=== PATIENT | female | born 1975 | race American Indian/Alaskan Native ===

== ENCOUNTER 2019-04-27 03:02 | Observation (INO) | payer BC ==
[2019-04-27] MEDS ORDERED: IPRATROPIUM/ALBUTEROL SULFATE 3 ML AMPUL.NEB IH ONE (03:31)
--- NOTE | 2019-04-27 04:12 | XRay Report ---
CHEST PA AND LATERAL VIEWS INDICATION: cough. COMPARISON: 07/11/2018 FINDINGS: Support devices: None. Heart: Stable. Lungs/Pleura: No acute pulmonary or pleural findings. IMPRESSION: 1. No acute findings. Signer Name: Jaswinder Beard MD Signed: 04/27/2019 4:08 AM Workstation Name: [id number]
[2019-04-27] MEDS ORDERED: predniSONE 20 MG TAB PO ONE (04:43)
[2019-04-27] MEDS ORDERED: amLODIPine 5 MG TAB PO ONE (04:57)
[2019-04-27 05:23] LABS: Basophils % (Auto) 0.4 % (0.0-1.8); Eosinophils # (Auto) 0.1 K/mm3 (0.0-0.4); Eosinophils % (Auto) 0.6 % (0.0-4.3); Hematocrit 31.3 % (30.3-42.9); Hemoglobin 9.8 gm/dl (10.1-14.3); Lymphocytes # (Auto) 3.4 K/mm3 (1.2-5.4); Lymphocytes % (Auto) 39.7 % (13.4-35.0); Mean Corpuscular HGB Conc 32 % (30-34); Mean Corpuscular Volume 72 fl (79-97); Monocytes # (Auto) 0.7 K/mm3 (0.0-0.8); Monocytes % (Auto) 8.5 % (0.0-7.3); Platelet Count 263 K/mm3 (140-440); Red Blood Count 4.32 M/mm3 (3.65-5.03); Red Cell Distribution Width 19.1 % (13.2-15.2)
[2019-04-27 05:38] LABS: Alanine Aminotransferase 18 units/L (7-56); Albumin 4.4 g/dL (3.9-5); BUN/Creatinine Ratio 15; Blood Urea Nitrogen 9 mg/dL (7-17); Calcium 9.8 mg/dL (8.4-10.2); Hemolysis Index 3
[2019-04-27] MEDS ORDERED: SODIUM CHLORIDE 0.9% 1000 ML 1,000 ML IV ONE ×2 (06:18→10:06)
--- NOTE | 2019-04-27 06:26 | Emergency Department Report ---
HPI - General Chief Complaint: Dyspnea/Respdistress Time Seen by Provider: 04/27/19 05:58 - HPI HPI: 44-year-old -[place] female presents to the emergency department with the complaint of a 4 to 5-day history of some shortness of breath, wheezing, mixed dry and productive cough. For the first 2 days the patient had a subjective fever. She was taking some TheraFlu without any relief. Her symptoms are also associated with some body aches. She denies any chest pain, lower extremity swelling, vomiting. The patient is a tobacco smoker but says she is actively trying to quit. She has a past medical history of hypertension. She does not have a primary care physician. She denies any recent travel or sick contacts at home. ED Past Medical Hx - Past Medical History Previous Medical History?: Yes Hx Psychiatric Treatment: Yes (bipolar) Additional medical history: brochitis - Surgical History Past Surgical History?: Yes Additional Surgical History: tubal repair - Social History Smoking Status: Current Some Day Smoker Substance Use Type: None - Medications Home Medications: Home Medications Medication Instructions Recorded Confirmed Last Taken Type Albuterol INH(or & Nicu Only) 2 puff IH QID PRN #8.5 gram 04/27/19 Unknown Rx [ProAir HFA Inhaler] Nicotine [Habitrol] 21 mg TD DAILY 04/27/19 04/27/19 04/26/19 History amLODIPine [Norvasc] 10 mg PO DAILY 04/27/19 04/27/19 04/27/19 History predniSONE [Deltasone] 20 mg PO QDAY #5 tab 04/27/19 Unknown Rx ED Review of Systems ROS: Stated complaint: COUGH,DIFF BREATHING Other details as noted in HPI Comment: All other systems reviewed and negative Constitutional: fever (Subjective). denies: diaphoresis Eyes: denies: eye pain, vision change ENT: denies: ear pain, throat pain Respiratory: cough, shortness of breath, wheezing Cardiovascular: denies: chest pain, edema Gastrointestinal: denies: abdominal pain, vomiting Genitourinary: denies: dysuria, discharge Musculoskeletal: myalgia. denies: joint swelling Skin: denies: rash, lesions Neurological: denies: headache, weakness Physical Exam - Physical Exam Vital Signs: Vital Signs 04/27/19 04/27/19 04/27/19 03:06 04:01 04:46 Temperature 98.6 F Pulse Rate 120 H 114 H Pulse Rate [ 101 H Anterior Bilateral Throughout] Respiratory 18 30 H Rate Respiratory 20 Rate [Anterior Bilateral Throughout] Blood Pressure 194/105 181/105 O2 Sat by Pulse 100 98 Oximetry Physical Exam: GENERAL: The patient is well-developed well-nourished. HENT: Normocephalic. Atraumatic. Patient has moist mucous membranes. EYES: Extraocular motions are intact. NECK: Supple. Trachea is midline. CHEST/LUNGS: Mild wheezing throughout the chest. Moderate tachypnea but no accessory muscle use. A dry cough heard during examination. HEART/CARDIOVASCULAR: Regular. There is mild to moderate tachycardia. ABDOMEN: Abdomen is soft, nontender. Patient has normal bowel sounds. There is no abdominal distention. SKIN: Skin is warm and dry. NEURO: The patient is awake, alert, and oriented. The patient is cooperative. The patient has no focal neurologic deficits. Normal speech. MUSCULOSKELETAL: There is no tenderness or deformity. There is no evidence of acute injury. ED Course Vital Signs 04/27/19 04/27/19 04/27/19 03:06 04:01 04:46 Temperature 98.6 F Pulse Rate 120 H 114 H Pulse Rate [ 101 H Anterior Bilateral Throughout] Respiratory 18 30 H Rate Respiratory 20 Rate [Anterior Bilateral Throughout] Blood Pressure 194/105 181/105 O2 Sat by Pulse 100 98 Oximetry ED Medical Decision Making - Lab Data Result diagrams: 04/27/19 04:53 04/27/19 04:53 - EKG Data -: EKG Interpreted by Ri EKG shows normal: sinus rhythm, axis, intervals, QRS complexes, ST-T waves Rate: normal - EKG Data When compared to previous EKG there are: previous EKG unavailable Interpretation: normal EKG - Radiology Data Radiology results: image reviewed interpreted by me: Chest x-ray does not show any acute process. There are no pleural effusions, obvious pneumonia and there is no pneumothorax. - Medical Decision Making This patient presents with a 4 to 5-day history of shortness of breath, wheezing, coughing. EKG did not show any signs of ST elevation [place]. Chest x-ray did not show any pneumonia, pleural effusions, or any other acute process. Labs have been mostly unremarkable including CBC, metabolic panel, negative troponin and a negative d-dimer. The patient received some steroids and breathing treatment prior to my shift starting. I gave the patient some magnesium, hydralazine, and another breathing treatment. The patient says that she did not feel much improvement. She continued to have some tachypnea and tachycardia. For this reason the patient will be admitted to the hospital for further evaluation and treatment and was accepted for admission by the hospitalist, Dr. Mejias. - Differential Diagnosis Pneumonia, asthma, bronchitis, PE, CHF Critical Care Time: No Critical care attestation.: If time is entered above; I have spent that time in minutes in the direct care of this critically ill patient, excluding procedure time. ED Disposition Clinical Impression: Bronchitis, acute, with bronchospasm Hypertension Qualifiers: Hypertension type: essential hypertension Qualified Code(s): I10 - Essential (primary) hypertension Dyspnea Qualifiers: Dyspnea type: shortness of breath Qualified Code(s): R06.02 - Shortness of breath; R06.00 - Dyspnea, unspecified; R06.01 - Orthopnea Disposition: 09 OP ADMIT IP TO THIS HOSP Is pt being admited?: Yes Condition: Fair Time of Disposition: 09:07
[2019-04-27] MEDS ORDERED: MAGNESIUM SULFATE 1 GM in SODIUM CHLORIDE 0.9% 50 ML IV ONE (07:00)
[2019-04-27] MEDS ORDERED: ALBUTEROL 2.5 MG/3 ML NEBU IH ONE (07:44)
[2019-04-27] MEDS ORDERED: hydrALAZINE 20 MG/1 ML INJ IV ONE (08:42)
[2019-04-27] MEDS ORDERED: SODIUM CHLORIDE 0.9% 1000 ML 1,000 ML ONE (10:40)
--- NOTE | 2019-04-27 12:35 | History and Physical Report ---
History of Present Illness Date of examination: 04/27/19 Date of admission: 04/27/19 10:05 Chief complaint: sob, cough History of present illness: 44-year-old -[place] female with past medical history of hypertension presents to the emergency department with the complaint of a 4 to 5-day history of some shortness of breath, wheezing, mixed dry and productive cough. The patient reported subjective fever approximately 2 days ago. She also reports that her symptoms are also associated with some body aches. She denies any chest pain, lower extremity swelling, vomiting. The patient is a tobacco smoker. Patient denies any nausea or vomiting. No headache or visual disturbances. Past History Past Medical History: other (Bronchitis, bipolar disorder) Past Surgical History: Other (Tubal repair) Social history: smoking Family history: no significant family history Medications and Allergies Allergies Allergy/AdvReac Type Severity Reaction Status Date / Time acetaminophen [From Midrin] AdvReac Itching Verified 04/27/19 03:10 dichloralphenazone AdvReac Itching Verified 07/11/18 13:38 [From Midrin] isometheptene mucate AdvReac Itching Verified 07/11/18 13:38 [From Midrin] Home Medications Medication Instructions Recorded Confirmed Last Taken Type Albuterol INH(or & Nicu Only) 2 puff IH QID PRN #8.5 gram 04/27/19 Unknown Rx [ProAir HFA Inhaler] Nicotine [Habitrol] 21 mg TD DAILY 04/27/19 04/27/19 04/26/19 History amLODIPine [Norvasc] 10 mg PO DAILY 04/27/19 04/27/19 04/27/19 History predniSONE [Deltasone] 20 mg PO QDAY #5 tab 04/27/19 Unknown Rx Active Meds: Active Medications Sodium Chloride (Nacl 0.9% 1000 Ml) 1,000 mls @ 250 mls/hr IV ONCE ONE Stop: 04/27/19 14:05 Last Admin: 04/27/19 10:44 Dose: 250 mls/hr Documented by: Review of Systems All systems: negative Exam - Constitutional Vitals: Temp Pulse Resp BP Pulse Ox 98.0 F 132 H 28 H 163/89 97 04/27/19 07:30 04/27/19 10:12 04/27/19 10:12 04/27/19 10:12 04/27/19 10:12 General appearance: Present: no acute distress, well-nourished - EENT Eyes: Present: PERRL ENT: hearing intact, clear oral mucosa - Neck Neck: Present: supple, normal ROM - Respiratory Respiratory effort: normal Respiratory: bilateral: CTA - Cardiovascular Heart Sounds: Present: S1 & S2. Absent: rub, click - Extremities Extremities: pulses symmetrical, No edema Peripheral Pulses: within normal limits - Abdominal General gastrointestinal: Present: soft, non-tender, non-distended, normal bowel sounds Female genitourinary: Present: normal - Integumentary Integumentary: Present: clear, warm, dry - Musculoskeletal Musculoskeletal: gait normal, strength equal bilaterally - Psychiatric Psychiatric: appropriate mood/affect, intact judgment & insight - Neurologic Neurologic: CNII-XII intact, moves all extremities Results - Labs CBC & Chem 7: 04/27/19 04:53 04/27/19 04:53 Labs: Laboratory Last Values WBC 8.5 K/mm3 (4.5-11.0) 04/27/19 04:53 RBC 4.32 M/mm3 (3.65-5.03) 04/27/19 04:53 Hgb 9.8 gm/dl (10.1-14.3) L 04/27/19 04:53 Hct 31.3 % (30.3-42.9) 04/27/19 04:53 MCV 72 fl (79-97) L 04/27/19 04:53 MCH 23 pg (28-32) L 04/27/19 04:53 MCHC 32 % (30-34) 04/27/19 04:53 RDW 19.1 % (13.2-15.2) H 04/27/19 04:53 Plt Count 263 K/mm3 (140-440) 04/27/19 04:53 Lymph % (Auto) 39.7 % (13.4-35.0) H 04/27/19 04:53 [place] % (Auto) 8.5 % (0.0-7.3) H 04/27/19 04:53 Eos % (Auto) 0.6 % (0.0-4.3) 04/27/19 04:53 Baso % (Auto) 0.4 % (0.0-1.8) 04/27/19 04:53 Lymph # 3.4 K/mm3 (1.2-5.4) 04/27/19 04:53 [place] # 0.7 K/mm3 (0.0-0.8) 04/27/19 04:53 Eos # 0.1 K/mm3 (0.0-0.4) 04/27/19 04:53 Baso # 0.0 K/mm3 (0.0-0.1) 04/27/19 04:53 Seg Neutrophils % 50.8 % (40.0-70.0) 04/27/19 04:53 Seg Neutrophils # 4.3 K/mm3 (1.8-7.7) 04/27/19 04:53 D-Dimer 168.98 ng/mlDDU (0-234) 04/27/19 07:08 Sodium 138 mmol/L (137-145) 04/27/19 04:53 Potassium 4.5 mmol/L (3.6-5.0) 04/27/19 04:53 Chloride 97.4 mmol/L (98-107) L 04/27/19 04:53 Carbon Dioxide 23 mmol/L (22-30) 04/27/19 04:53 Anion Gap 22 mmol/L 04/27/19 04:53 BUN 9 mg/dL (7-17) 04/27/19 04:53 Creatinine 0.6 mg/dL (0.7-1.2) L 04/27/19 04:53 Estimated GFR > 60 ml/min 04/27/19 04:53 BUN/Creatinine Ratio 15 % 04/27/19 04:53 Glucose 105 mg/dL (65-100) H 04/27/19 04:53 Calcium 9.8 mg/dL (8.4-10.2) 04/27/19 04:53 Total Bilirubin 0.30 mg/dL (0.1-1.2) 04/27/19 04:53 AST 26 units/L (5-40) 04/27/19 04:53 ALT 18 units/L (7-56) 04/27/19 04:53 Alkaline Phosphatase 41 units/L (35-129) 04/27/19 04:53 NT-Pro-B Natriuret Pep 112.3 pg/mL (0-450) 04/27/19 04:53 Total Protein 7.0 g/dL (6.3-8.2) 04/27/19 04:53 Albumin 4.4 g/dL (3.9-5) 04/27/19 04:53 Albumin/Globulin Ratio 1.7 % 04/27/19 04:53 Assessment and Plan Assessment and plan: Acute bronchitis. Patient will be started on IV antibiotics and follow sputum cultures. Reactive airway disease. Patient reports no history of asthma. Patient will likely need further follow-up as outpatient with pulmonology. Hypertension. Resume antihypertensive medications.
[2019-04-27] MEDS ORDERED: ONDANSETRON 4 MG/2 ML INJ IV PRN (12:38)
[2019-04-27] MEDS: guaiFENesin 100 MG/5 ML ORAL LIQD PO PRN ×2 (14:51→21:10)
[2019-04-27] MEDS ORDERED: NICOTINE 21 MG/24 HR PATCH TD SCH (15:00)
[2019-04-27] MEDS: ALBUTEROL 2.5 MG/3 ML NEBU IH SCH ×2 (15:49→20:18)
[2019-04-27] MEDS: ENOXAPARIN 40 MG/0.4 ML INJ SUB-Q SCH (15:54)
[2019-04-27] MEDS: methylPREDNISolone Sod Succinate 40 MG/1 ML INJ IV SCH (16:59)
[2019-04-27] MEDS: ACETAMINOPHEN 325 MG TAB PO PRN (21:10)
[2019-04-28] MEDS: ALBUTEROL 2.5 MG/3 ML NEBU IH SCH ×3 (03:47→16:45)
[2019-04-28 05:21] LABS: Basophils % (Auto) 0.3 % (0.0-1.8); Hematocrit 31.7 % (30.3-42.9); Hemoglobin 9.9 gm/dl (10.1-14.3); Lymphocytes # (Auto) 1.8 K/mm3 (1.2-5.4); Lymphocytes % (Auto) 17.3 % (13.4-35.0); Mean Corpuscular HGB Conc 31 % (30-34); Mean Corpuscular Volume 73 fl (79-97); Monocytes # (Auto) 0.4 K/mm3 (0.0-0.8); Monocytes % (Auto) 4.1 % (0.0-7.3); Platelet Count 256 K/mm3 (140-440); Red Blood Count 4.35 M/mm3 (3.65-5.03); Red Cell Distribution Width 19.7 % (13.2-15.2)
[2019-04-28 05:23] LABS: BUN/Creatinine Ratio 14; Blood Urea Nitrogen 10 mg/dL (7-17); Calcium 9.8 mg/dL (8.4-10.2); Hemolysis Index 6
[2019-04-28] MEDS ORDERED: hydrALAZINE 20 MG/1 ML INJ IV PRN ×2 (06:14→07:37)
[2019-04-28] MEDS: guaiFENesin 100 MG/5 ML ORAL LIQD PO PRN (06:34)
[2019-04-28] MEDS: methylPREDNISolone Sod Succinate 40 MG/1 ML INJ IV SCH (06:35)
[2019-04-28] MEDS: ACETAMINOPHEN 325 MG TAB PO PRN (06:35)
[2019-04-28] MEDS ORDERED: amLODIPine 5 MG TAB PO SCH (08:00)
[2019-04-28] MEDS ORDERED: amLODIPine 10 MG TAB PO SCH (08:00)
[2019-04-28] MEDS ORDERED: BENZONATATE 100 MG CAP PO SCH ×2 (09:00→14:00)
[2019-04-28] MEDS ORDERED: NICOTINE 21 MG/24 HR PATCH TD SCH (10:00)
[2019-04-28] MEDS: ENOXAPARIN 40 MG/0.4 ML INJ SUB-Q SCH (10:37)
--- NOTE | 2019-04-28 12:10 | Discharge Summary ---
Providers - Providers Date of Admission: 04/27/19 10:05 Date of discharge: 04/28/19 Attending physician: CAL DURON Primary care physician: [employer] Hospitalization Condition: Fair Disposition: DC-01 TO HOME OR SELFCARE Exam - Constitutional Vitals: Temp Pulse Resp BP Pulse Ox 99.2 F 116 H 20 158/90 99 04/28/19 06:02 04/28/19 03:49 04/28/19 06:02 04/28/19 10:36 04/27/19 21:32 Plan Activity: no restrictions Diet: low fat, low cholesterol, low salt Plan of Treatment: 1.Follow up with PCP or [facility] in 1 week. Follow up with: PRIMARY CARE,MD [Primary Care Provider] - 7 Days Prescriptions: predniSONE [Deltasone] 20 mg PO QDAY #5 tab Albuterol INH(or & Nicu Only) [ProAir HFA Inhaler] 2 puff IH QID PRN #8.5 gram PRN Reason: Shortness Of Breath guaiFENesin [Robitussin] 200 mg PO Q4H PRN #1 bottle PRN Reason: Cough Benzonatate [Tessalon Perles] 200 mg PO Q8HR #20 capsule
[2019-04-28] MEDS ORDERED: hydrALAZINE 25 MG TAB PO SCH (13:00)
[2019-04-28 13:36] VITALS: BP 145/89
== END 2019-04-28 16:25 | disposition home or self-care (01) ==
LOC: ED 03:02 → 3A 10:05
PROVIDERS: ADMIT Hospitalist; ATTEND Internal Medicine
DX: J20.9 Acute bronchitis, unspecified (principal); J45.909 Unspecified asthma, uncomplicated; I10 Essential (primary) hypertension; F31.9 Bipolar disorder, unspecified; F17.200 Nicotine dependence, unspecified, uncomplicated; Z71.6 Tobacco abuse counseling; Z79.899 Other long term (current) drug therapy; Z88.8 Allergy status to other drugs, medicaments and biological substances
CPT/HCPCS: 36415; 71046; 80048; 80053; 82962; 83880; 85025; 85379; 93005; 93010; 94640; 94644; 96365; 96366; 96367; 96375; 96376; 99285; 99406; G0378; J0360; J1956; J2920; J3475; J7030; J7512; J1650

== ENCOUNTER 2019-08-28 15:43 | Emergency (ER) | payer SELFPAY ==
--- NOTE | 2019-08-28 16:36 | Emergency Department Report ---
ED Neuro Deficit HPI - General Chief Complaint: Neuro Symptoms/Deficit Stated Complaint: NUMBINESS, HEADACHE Time Seen by Provider: 08/28/19 16:10 Source: patient Mode of arrival: Ambulatory Limitations: No Limitations - History of Present Illness Initial Comments: Patient is a 44-year-old female that presents emergency room with complaints of headache and bilateral arm numbness. Patient states her symptoms started this morning at 8 AM. Patient states the symptoms are worsening. Patient states that the symptoms are worse with exertion and movement. Patient states the symptoms are better with rest. Patient states her headache is a 6 out of 10. Patient states it is a generalized headache. Patient denies fever and chills. Patient denies neck stiffness. Patient denies neck pain. Patient denies blurry vision. Patient denies dizziness. Patient denies syncope or near syncope. Patient denies chest pain or shortness of breath. Patient states she has a history of asthma, bronchitis and hypertension. Patient states she ran out of medications for her blood pressure. Patient states she has medication the pharmacy but just has not picked them up yet. Patient denies recent travel. Patient denies recent international travel. Patient denies exposure to the novel coronavirus. Patient denies sick contacts. Patient denies fever and chills. Patient denies cough. Patient denies diarrhea. Patient denies coming in contact with anybody with symptoms of the novel coronavirus. -: Sudden Location: left arm, right arm Presenting Symptoms: Present: Sudden, Severe Headache History of same: No Place: home Severity: moderate Quality: numb, constant Improves With: rest Worsens With: other On Anticoagulants: No Context: sudden onset Associated Symptoms: headaches. denies: confusion, chest pain, cough, diaphoresis, fever/chills, loss of appetite, malise, nausea/vomiting, vertigo, seizures, shortness of breath, syncope, weakness Treatments Prior to Arrival: none - Related Data Home Medications: Home Medications Medication Instructions Recorded Confirmed Last Taken Nicotine [Habitrol] 21 mg TD DAILY 04/27/19 04/27/19 04/26/19 amLODIPine 10 mg PO DAILY 04/27/19 04/27/19 04/27/19 Previous Rx's Medication Instructions Recorded Last Taken Type Albuterol INH(or & Nicu Only) 2 puff IH QID PRN #8.5 gram 04/27/19 Unknown Rx [ProAir HFA Inhaler] predniSONE [Deltasone] 20 mg PO QDAY #5 tab 04/27/19 Unknown Rx Benzonatate [Tessalon Perles] 200 mg PO Q8HR #20 capsule 04/28/19 Unknown Rx guaiFENesin [Robitussin] 200 mg PO Q4H PRN #1 bottle 04/28/19 Unknown Rx Iron Fum,Ps/Folic/Bcomp,C No.9 1 each PO DAILY 30 Days #30 capsule 08/28/19 Unknown Rx [Integra Plus Capsule] Potassium Chloride 20 meq PO QDAY 30 Days #30 packet 08/28/19 Unknown Rx Allergies/Adverse Reactions: Allergies Allergy/AdvReac Type Severity Reaction Status Date / Time acetaminophen [From Midrin] AdvReac Itching Verified 04/27/19 03:10 dichloralphenazone AdvReac Itching Verified 07/11/18 13:38 [From Midrin] isometheptene mucate AdvReac Itching Verified 07/11/18 13:38 [From Midrin] ED Review of Systems ROS: Stated complaint: NUMBINESS, HEADACHE Other details as noted in HPI Constitutional: denies: chills, fever Eyes: denies: eye pain, eye discharge, vision change ENT: denies: ear pain, throat pain Respiratory: denies: cough, shortness of breath, wheezing Cardiovascular: denies: chest pain, palpitations Endocrine: no symptoms reported Gastrointestinal: denies: abdominal pain, nausea, diarrhea Genitourinary: denies: urgency, dysuria, discharge Musculoskeletal: denies: back pain, joint swelling, arthralgia Skin: denies: rash, lesions Neurological: headache, numbness. denies: weakness, paresthesias Psychiatric: denies: anxiety, depression Hematological/Lymphatic: denies: easy bleeding, easy bruising ED Past Medical Hx - Past Medical History Previous Medical History?: Yes Hx Hypertension: Yes Hx Congestive Heart Failure: No Hx Diabetes: No Hx Psychiatric Treatment: Yes (bipolar) Hx Asthma: Yes Hx COPD: No Additional medical history: brochitis - Surgical History Past Surgical History?: Yes Additional Surgical History: tubal repair - Family History Family history: no significant - Social History Smoking Status: Current Every Day Smoker Substance Use Type: None - Medications Home Medications: Home Medications Medication Instructions Recorded Confirmed Last Taken Type Albuterol INH(or & Nicu Only) 2 puff IH QID PRN #8.5 gram 04/27/19 Unknown Rx [ProAir HFA Inhaler] Nicotine [Habitrol] 21 mg TD DAILY 04/27/19 04/27/19 04/26/19 History amLODIPine 10 mg PO DAILY 04/27/19 04/27/19 04/27/19 History predniSONE [Deltasone] 20 mg PO QDAY #5 tab 04/27/19 Unknown Rx Benzonatate [Tessalon Perles] 200 mg PO Q8HR #20 capsule 04/28/19 Unknown Rx guaiFENesin [Robitussin] 200 mg PO Q4H PRN #1 bottle 04/28/19 Unknown Rx Iron Fum,Ps/Folic/Bcomp,C No.9 1 each PO DAILY 30 Days #30 capsule 08/28/19 Unknown Rx [Integra Plus Capsule] Potassium Chloride 20 meq PO QDAY 30 Days #30 packet 08/28/19 Unknown Rx ED Neuro Physical Exam - General Limitations: No Limitations General appearance: alert, in no apparent distress Suspected Stroke: No - Head Head exam: Present: atraumatic, normocephalic - Eye Eye exam: Present: normal appearance, PERRL Pupils: Present: normal accommodation - ENT ENT exam: Present: mucous membranes moist - Neck Neck exam: Present: normal inspection - Respiratory Respiratory exam: Present: normal lung sounds bilaterally. Absent: respiratory distress, wheezes, rales - Cardiovascular Cardiovascular Exam: Present: regular rate, normal rhythm. Absent: systolic murmur, diastolic murmur, rubs, gallop - GI/Abdominal GI/Abdominal exam: Present: soft, normal bowel sounds. Absent: distended, tenderness, guarding - Rectal Rectal exam: Present: deferred - Extremities Exam Extremities exam: Present: normal inspection - Back Exam Back exam: Present: normal inspection - Neurological Exam Neurological exam: Present: alert, oriented X3 - NIHSS Assessment Interval: Baseline 1a. Level of Consciousness: alert/keenly responsive 1b. LOC Questions: answers both correctly 1c. LOC Commands: performs tasks correctly 2. Best Gaze: normal 3. Visual: no visual loss 4. Facial Palsy: normal symmetrical movement 5b. Motor Arm Right: no drift 5a. Motor Arm Left: no drift 6a. Motor Leg Left: no drift 6b. Motor Leg Right: no drift 7. Limb Ataxia: absent 8. Sensory: normal 9. Best Language: no aphasia 10. Dysarthria: normal 11. Extinction/Inattention: no abnormality Total Score: 0 Stroke Severity: No Stroke Symptoms - Psychiatric Psychiatric exam: Present: normal affect, normal mood - Skin Skin exam: Present: warm, dry, intact, normal color. Absent: rash ED Course Vital Signs 08/28/19 08/28/19 08/28/19 15:49 16:43 17:24 Temperature 98.5 F Pulse Rate 131 H 102 H 95 H Respiratory 16 18 16 Rate Blood Pressure 193/118 Blood Pressure 191/100 166/91 [Left] O2 Sat by Pulse 96 100 99 Oximetry - Reevaluation(s) Reevaluation #1: Initial evaluation done. Patient found to have elevated blood pressure. 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 08/28/19 16:10 Reevaluation #2: Patient's blood pressure has improved without medications. We will hold the blood pressure medication order. 08/28/19 17:20 Reevaluation #3: Patient states her symptoms have resolved and she is ready to go. Patient states she does not want to wait to be monitored any further. My plan was to monitor the patient longer. Patient signed AMA form. I discussed the risk with patient. Patient voiced understanding of risk. Even though the patient is leaving AGAINST MEDICAL ADVICE and prior to a complete ER visit could be done, I will provide discharge paperwork and prescriptions to the patient. 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 I discussed all results and clinical findings with patient. I discussed plan of care with patient. Patient agrees with plan of care. Patient given discharge instructions. Patient voiced understanding of discharge instructions. 08/28/19 17:44 Reevaluation #4: Patient left prior to being able to be given her printed discharge instructions and prescriptions. 08/28/19 17:55 - Lab Data Result diagrams: 08/28/19 16:45 08/28/19 16:45 Lab Results 08/28/19 08/28/19 08/28/19 Range/Units 16:13 16:45 16:45 WBC 5.1 (4.5-11.0) K/mm3 RBC 4.01 (3.65-5.03) M/mm3 Hgb 8.5 L (10.1-14.3) gm/dl Hct 28.1 L (30.3-42.9) % MCV 70 L (79-97) fl MCH 21 L (28-32) pg MCHC 30 (30-34) % RDW 20.8 H (13.2-15.2) % Plt Count 271 (140-440) K/mm3 Sodium 134 L (137-145) mmol/L Potassium 2.8 L* (3.6-5.0) mmol/L Chloride 93.5 L (98-107) mmol/L Carbon Dioxide 23 (22-30) mmol/L Anion Gap 20 mmol/L BUN 5 L (7-17) mg/dL Creatinine 0.8 (0.7-1.2) mg/dL Estimated GFR > 60 ml/min BUN/Creatinine Ratio 6 % Glucose 131 H (65-100) mg/dL POC Glucose 157 H (70-105) Calcium 8.8 (8.4-10.2) mg/dL Total Bilirubin 0.40 (0.1-1.2) mg/dL AST 41 H (5-40) units/L ALT 21 (7-56) units/L Alkaline Phosphatase 32 L (35-129) units/L Total Protein 6.5 (6.3-8.2) g/dL Albumin 4.1 (3.9-5) g/dL Albumin/Globulin Ratio 1.7 % - EKG Data -: EKG Interpreted by Me EKG shows normal: sinus rhythm, axis, intervals, QRS complexes, ST-T waves Rate: tachycardia - Medical Decision Making Patient is a 44-year-old female that presents emergency room with complaints of headache and arm numbness. Patient missed her blood pressure medication for the last few days and because her blood pressure is high. Patient found to have significantly elevated blood pressure consistent with malignant hypertension. Patient had metoprolol ordered however the patient's blood pressure proved on its own and did not require any antihypertensive medications. Patient stated that she already had medication at the pharmacy just needs to pick them up. Patient had labs done and labs were consistent with anemia and hypokalemia. Patient did not want a wait for me to monitor the patient's blood pressure any longer and left the hospital AGAINST MEDICAL ADVICE. I discussed the risk of leaving the hospital against medical base with the patient and the patient voiced understanding of the risk of AMA. Patient signed AMA form. I told the patient that I will still give her prescription and printed discharge instructions after I gave her the instructions verbally and the patient eloped from the hospital without her discharge instructions and prescriptions. - Differential Diagnosis HTN emergency, malignant HTN, OLIVARES, arm numbness, missed dose Critical Care Time: Yes Critical care time in (mins) excluding proc time.: 35 Critical care attestation.: If time is entered above; I have spent that time in minutes in the direct care of this critically ill patient, excluding procedure time. Critical Care Time: 35 minutes ED Disposition Clinical Impression: Hypokalemia, Malignant hypertension, Arm numbness Hypertension Qualifiers: Hypertension type: essential hypertension Qualified Code(s): I10 - Essential (primary) hypertension Headache Qualifiers: Headache type: unspecified Headache chronicity pattern: acute headache Intrac tability: not intractable Qualified Code(s): R51 - Headache Anemia Qualifiers: Anemia type: unspecified type Qualified Code(s): D64.9 - Anemia, unspecified Disposition: DC-07 LEFT AGAINST MED ADVICE Is pt being admited?: No Does the pt Need Aspirin: No Condition: Undetermined Instructions: Heart Healthy Diet (ED), How to Take a Blood Pressure (ED), Iron Deficiency Anemia (ED), DASH Eating Plan (ED), Low Sodium Diet (ED), Hypertension (ED), Anemia (ED) Additional Instructions: Patient to follow-up with primary care in 2 to 3 days. Patient to monitor blood pressure. Patient to keep a blood pressure log. Patient to bring blood pressure log to all follow-up appointments. Patient to take medications as instructed. Patient to not miss any doses of her blood pressure medication. Patient to eat a heart healthy and low-sodium diet. Patient to quit smoking. Patient will need to have her potassium checked with her primary care within 2 to 3 days. Patient to rest. Patient to increase water. Patient to avoid strenuous exercise or heavy lifting until cleared by primary care. Patient to take Tylenol as needed for pain. Patient to take meds as directed. Patient to return to the ER if condition worsens, changes or new symptoms arise. Prescriptions: Iron Fum,Ps/Folic/Bcomp,C No.9 [Integra Plus Capsule] 1 each PO DAILY 30 Days #30 capsule Potassium Chloride 20 meq PO QDAY 30 Days #30 packet Referrals: PRIMARY CARE, [Primary Care Provider] - 2-3 Days Forms: AMA Form Time of Disposition: 17:51
[2019-08-28] MEDS ORDERED: amLODIPine 5 MG TAB PO ONE (16:41)
[2019-08-28] MEDS ORDERED: METOPROLOL TARTRATE 5 MG/5 ML INJ IV ONE (16:41)
[2019-08-28 17:03] LABS: Hematocrit 28.1 % (30.3-42.9); Hemoglobin 8.5 gm/dl (10.1-14.3); Mean Corpuscular HGB Conc 30 % (30-34); Mean Corpuscular Volume 70 fl (79-97); Platelet Count 271 K/mm3 (140-440); Red Blood Count 4.01 M/mm3 (3.65-5.03)
[2019-08-28 17:05] LABS: Red Cell Distribution Width 20.8 % (13.2-15.2)
[2019-08-28 17:22] LABS: Alanine Aminotransferase 21 units/L (7-56); Albumin 4.1 g/dL (3.9-5); BUN/Creatinine Ratio 6; Blood Urea Nitrogen 5 mg/dL (7-17); Calcium 8.8 mg/dL (8.4-10.2); Hemolysis Index 4
[2019-08-28 17:27] VITALS: BP 166/91
== END 2019-08-28 18:00 | disposition left against medical advice (07) ==
LOC: ED 15:43
DX: E87.6 Hypokalemia (principal); D64.9 Anemia, unspecified; F31.9 Bipolar disorder, unspecified; I10 Essential (primary) hypertension; J45.909 Unspecified asthma, uncomplicated; F17.200 Nicotine dependence, unspecified, uncomplicated; Z79.899 Other long term (current) drug therapy; Z88.6 Allergy status to analgesic agent
CPT/HCPCS: 36415; 80053; 82962; 85027; 93005

== ENCOUNTER 2019-12-01 09:20 | Emergency (ER) | payer SELFPAY ==
[2019-12-01 09:32] VITALS: BP 109/89
[2019-12-01] MEDS ORDERED: SODIUM CHLORIDE 0.9% 1000 ML 1,000 ML IV ONE (10:04)
[2019-12-01] MEDS ORDERED: MORPHINE 4 MG/1 ML INJ IV ONE ×2 (10:04→12:56)
[2019-12-01] MEDS ORDERED: ONDANSETRON 4 MG/2 ML INJ IV ONE (10:04)
[2019-12-01 10:45] LABS: Bilirubin,Urine NEG (Negative); Blood,Urine NEG (Negative); Color,Urine Straw (Yellow); Protein,Urine <15 mg/dL mg/dL (Negative); Urobilinogen,Urine < 2.0 mg/dL (<2.0); WBC,Urine < 1.0 /HPF (0.0-6.0)
--- NOTE | 2019-12-01 10:45 | Emergency Department Report ---
ED Abdominal Pain HPI - General Chief Complaint: Abdominal Pain Stated Complaint: RT SIDE CHEST/BACK PAIN Time Seen by Provider: 12/01/19 09:57 Source: patient Mode of arrival: Ambulatory Limitations: No Limitations - History of Present Illness Initial Comments: This is a 44-year-old female nontoxic, well nourished in appearance, no acute signs of distress presents to the ED with c/o of nausea and abdominal pain 2 weeks. Patient denies any vomiting. Patient describes abdominal pain as cramping and aching with level of 8/10 to RUQ with radiation to right flank area. Patient denies chest pain, short of breath, fever, hemoptysis, blood in stool, chills, headache, stiff neck, numbness or tingling. Patient denies any diarrhea or constipation. Denies any blood in stool. Patient denies any recent travels. MD Complaint: abdominal pain -: week(s) (2) Location: RUQ Radiation: R flank Migration to: no migration Severity: mild Severity scale (0 -10): 8 Quality: cramping, aching Consistency: constant Improves With: nothing Worsens With: nothing Associated Symptoms: nausea. denies: vomiting, diarrhea, fever, chills, constipation, dysuria, hematemesis, hematochezia, melena, hematuria, anorexia, syncope - Related Data Home Medications Medication Instructions Recorded Confirmed Last Taken Nicotine [Habitrol] 21 mg TD DAILY 04/27/19 04/27/19 04/26/19 amLODIPine 10 mg PO DAILY 04/27/19 04/27/19 04/27/19 Previous Rx's Medication Instructions Recorded Last Taken Type Albuterol Mdi (or & Nicu Only) 2 puff IH QID PRN #8.5 gram 04/27/19 Unknown Rx [ProAir HFA Inhaler] predniSONE [Deltasone] 20 mg PO QDAY #5 tab 04/27/19 Unknown Rx Benzonatate [Tessalon Perles] 200 mg PO Q8HR #20 capsule 04/28/19 Unknown Rx guaiFENesin [Robitussin] 200 mg PO Q4H PRN #1 bottle 04/28/19 Unknown Rx Iron Fum,Ps/Folic/Bcomp,C No.9 1 each PO DAILY 30 Days #30 capsule 08/28/19 Unknown Rx [Integra Plus Capsule] Potassium Chloride 20 meq PO QDAY 30 Days #30 packet 08/28/19 Unknown Rx Ondansetron [Zofran Odt] 4 mg PO Q8HR PRN #12 tab.rapdis 12/01/19 Unknown Rx Allergies Allergy/AdvReac Type Severity Reaction Status Date / Time acetaminophen [From Midrin] AdvReac Itching Verified 04/27/19 03:10 dichloralphenazone AdvReac Itching Verified 07/11/18 13:38 [From Midrin] isometheptene mucate AdvReac Itching Verified 07/11/18 13:38 [facility] Review of Systems ROS: Stated complaint: RT SIDE CHEST/BACK PAIN Other details as noted in HPI Constitutional: denies: chills, fever Eyes: denies: eye pain, eye discharge, vision change ENT: denies: ear pain, throat pain Respiratory: denies: cough, shortness of breath, wheezing Cardiovascular: denies: chest pain, palpitations Endocrine: no symptoms reported Gastrointestinal: abdominal pain, nausea. denies: vomiting, diarrhea, constipation, hematemesis, melena, hematochezia Genitourinary: denies: urgency, dysuria, discharge Musculoskeletal: denies: back pain, joint swelling, arthralgia Skin: denies: rash, lesions Neurological: denies: headache, weakness, paresthesias Psychiatric: denies: anxiety, depression Hematological/Lymphatic: denies: easy bleeding, easy bruising ED Past Medical Hx - Past Medical History Previous Medical History?: Yes Hx Hypertension: Yes Hx Congestive Heart Failure: No Hx Diabetes: No Hx Psychiatric Treatment: Yes (bipolar) Hx Asthma: Yes Hx COPD: No Additional medical history: brochitis - Surgical History Past Surgical History?: Yes Additional Surgical History: tubal repair - Social History Smoking Status: Never Smoker Substance Use Type: None - Medications Home Medications: Home Medications Medication Instructions Recorded Confirmed Last Taken Type Albuterol Mdi (or & Nicu Only) 2 puff IH QID PRN #8.5 gram 04/27/19 Unknown Rx [ProAir HFA Inhaler] Nicotine [Habitrol] 21 mg TD DAILY 04/27/19 04/27/19 04/26/19 History amLODIPine 10 mg PO DAILY 04/27/19 04/27/19 04/27/19 History predniSONE [Deltasone] 20 mg PO QDAY #5 tab 04/27/19 Unknown Rx Benzonatate [Tessalon Perles] 200 mg PO Q8HR #20 capsule 04/28/19 Unknown Rx guaiFENesin [Robitussin] 200 mg PO Q4H PRN #1 bottle 04/28/19 Unknown Rx Iron Fum,Ps/Folic/Bcomp,C No.9 1 each PO DAILY 30 Days #30 capsule 08/28/19 Unknown Rx [Integra Plus Capsule] Potassium Chloride 20 meq PO QDAY 30 Days #30 packet 08/28/19 Unknown Rx Ondansetron [Zofran Odt] 4 mg PO Q8HR PRN #12 tab.rapdis 12/01/19 Unknown Rx ED Physical Exam - General Limitations: No Limitations General appearance: alert, in no apparent distress - Head Head exam: Present: atraumatic, normocephalic - Eye Eye exam: Present: normal appearance - Neck Neck exam: Present: normal inspection, full ROM. Absent: tenderness, meningismus, lymphadenopathy - Respiratory Respiratory exam: Present: normal lung sounds bilaterally. Absent: respiratory distress, wheezes, rales, rhonchi, stridor, chest wall tenderness, accessory muscle use, decreased breath sounds, prolonged expiratory - Cardiovascular Cardiovascular Exam: Present: normal rhythm, tachycardia, normal heart sounds. Absent: systolic murmur, diastolic murmur, rubs, gallop - GI/Abdominal GI/Abdominal exam: Present: soft, tenderness (RUQ), normal bowel sounds. Absent: distended, guarding, rebound, rigid, diminished bowel sounds - Extremities Exam Extremities exam: Present: normal inspection, full ROM - Back Exam Back exam: Present: normal inspection, full ROM. Absent: tenderness, CVA tenderness (R), CVA tenderness (L), muscle spasm, paraspinal tenderness, vertebral tenderness, rash noted - Neurological Exam Neurological exam: Present: alert, oriented X3, normal gait - Psychiatric Psychiatric exam: Present: normal affect, normal mood - Skin Skin exam: Present: warm, dry, intact, normal color. Absent: rash ED Course Vital Signs 12/01/19 09:28 Temperature 99 F Pulse Rate 101 H Respiratory 12 Rate Blood Pressure 109/89 Blood Pressure 189/109 [Right] O2 Sat by Pulse 100 Oximetry - Reevaluation(s) Reevaluation #1: 12/01/19 10:45 Patient is speaking in full sentences with no signs of distress noted. ED Medical Decision Making - Lab Data Result diagrams: 12/01/19 09:43 12/01/19 09:43 Lab Results 12/01/19 12/01/19 12/01/19 Range/Units 09:43 09:43 09:46 WBC 5.1 (4.5-11.0) K/mm3 RBC 4.25 (3.65-5.03) M/mm3 Hgb 8.8 L (10.1-14.3) gm/dl Hct 29.2 L (30.3-42.9) % MCV 69 L (79-97) fl MCH 21 L (28-32) pg MCHC 30 (30-34) % RDW 21.0 H (13.2-15.2) % Plt Count 296 (140-440) K/mm3 Lymph % (Auto) 35.7 H (13.4-35.0) % [place] % (Auto) 9.8 H (0.0-7.3) % Eos % (Auto) 1.6 (0.0-4.3) % Baso % (Auto) 1.0 (0.0-1.8) % Lymph # (Auto) 1.8 (1.2-5.4) K/mm3 [place] # (Auto) 0.5 (0.0-0.8) K/mm3 Eos # (Auto) 0.1 (0.0-0.4) K/mm3 Baso # (Auto) 0.0 (0.0-0.1) K/mm3 Seg Neutrophils % 51.9 (40.0-70.0) % Seg Neutrophils # 2.6 (1.8-7.7) K/mm3 Sodium 137 (137-145) mmol/L Potassium 3.7 (3.6-5.0) mmol/L Chloride 98.3 (98-107) mmol/L Carbon Dioxide 26 (22-30) mmol/L Anion Gap 16 mmol/L BUN 6 L (7-17) mg/dL Creatinine 0.7 (0.6-1.2) mg/dL Estimated GFR > 60 ml/min BUN/Creatinine Ratio 9 % Glucose 110 H (65-100) mg/dL Calcium 10.0 (8.4-10.2) mg/dL Total Bilirubin 0.40 (0.1-1.2) mg/dL AST 18 (5-40) units/L ALT 12 (7-56) units/L Alkaline Phosphatase 42 (35-129) units/L Total Protein 7.2 (6.3-8.2) g/dL Albumin 4.5 (3.9-5) g/dL Albumin/Globulin Ratio 1.7 % Lipase 21 (13-60) units/L HCG, Qual (Negative) Urine Color (Yellow) Urine Turbidity (Clear) Urine pH (5.0-7.0) Ur Specific [place] (1.003-1.030) Urine Protein (Negative) mg/dL Urine Glucose (UA) (Negative) mg/dL Urine Ketones (Negative) mg/dL Urine Blood (Negative) Urine Nitrite (Negative) Urine Bilirubin (Negative) Urine Urobilinogen (<2.0) mg/dL Ur Leukocyte Esterase (Negative) Urine WBC (Auto) (0.0-6.0) /HPF Urine RBC (Auto) (0.0-6.0) /HPF U Epithel Cells (Auto) (0-13.0) /HPF 12/01/19 12/01/19 Range/Units 09:46 10:32 WBC (4.5-11.0) K/mm3 RBC (3.65-5.03) M/mm3 Hgb (10.1-14.3) gm/dl Hct (30.3-42.9) % MCV (79-97) fl MCH (28-32) pg MCHC (30-34) % RDW (13.2-15.2) % Plt Count (140-440) K/mm3 Lymph % (Auto) (13.4-35.0) % [place] % (Auto) (0.0-7.3) % Eos % (Auto) (0.0-4.3) % Baso % (Auto) (0.0-1.8) % Lymph # (Auto) (1.2-5.4) K/mm3 [place] # (Auto) (0.0-0.8) K/mm3 Eos # (Auto) (0.0-0.4) K/mm3 Baso # (Auto) (0.0-0.1) K/mm3 Seg Neutrophils % (40.0-70.0) % Seg Neutrophils # (1.8-7.7) K/mm3 Sodium (137-145) mmol/L Potassium (3.6-5.0) mmol/L Chloride (98-107) mmol/L Carbon Dioxide (22-30) mmol/L Anion Gap mmol/L BUN (7-17) mg/dL Creatinine (0.6-1.2) mg/dL Estimated GFR ml/min BUN/Creatinine Ratio % Glucose (65-100) mg/dL Calcium (8.4-10.2) mg/dL Total Bilirubin (0.1-1.2) mg/dL AST (5-40) units/L ALT (7-56) units/L Alkaline Phosphatase (35-129) units/L Total Protein (6.3-8.2) g/dL Albumin (3.9-5) g/dL Albumin/Globulin Ratio % Lipase (13-60) units/L HCG, Qual Negative (Negative) Urine Color Straw (Yellow) Urine Turbidity Clear (Clear) Urine pH 6.0 (5.0-7.0) Ur Specific [place] 1.002 L (1.003-1.030) Urine Protein <15 mg/dl (Negative) mg/dL Urine Glucose (UA) Neg (Negative) mg/dL Urine Ketones Neg (Negative) mg/dL Urine Blood Neg (Negative) Urine Nitrite Neg (Negative) Urine Bilirubin Neg (Negative) Urine Urobilinogen < 2.0 (<2.0) mg/dL Ur Leukocyte Esterase Neg (Negative) Urine WBC (Auto) < 1.0 (0.0-6.0) /HPF Urine RBC (Auto) 2.0 (0.0-6.0) /HPF U Epithel Cells (Auto) 1.0 (0-13.0) /HPF - Radiology Data Referring Physician: JUSTO THOMAS Patient Name: MESHA TAYLOR Date of : 1975 Sex: Female Report Date: 2019-12-01 Report Status: Finalized [facility] [address] [place] [address] Ultrasound Report Signed Patient: MESHA TAYLOR MR#: [id number] : 1975 Acct:[id number] Age/Sex: 44 / F ADM Date: 12/01/19 Loc: ED Attending Dr: Ordering Physician: JUSTO THOMAS NP Date of Service: 12/01/19 Procedure(s): US abdomen complete Accession Number(s): [id number] cc: JUSTO THOMAS NP ULTRASOUND ABDOMEN, COMPLETE INDICATION: abd pain. COMPARISON: No relevant prior imaging study available. FINDINGS: Pancreas: Partially obscured by bowel gas without a distinct abnormality. Abdominal Aorta: No significant abnormality. IVC: Obscured by bowel gas. Liver: No significant abnormality. Gallbladder: No significant abnormality. Bile ducts: No intrahepatic biliary ductal dilatation. The CBD is not clearly visualized. Kidneys: Right: No significant abnormality. Left : No significant abnormality. Spleen: No signifi cant abnormality. Free fluid: None. Additional Findings: None. IMPRESSION: 1. No sonographic abnormality of the abdomen. Signer Name: Deven Neves MD Signed: 12/01/2019 1:09 PM Workstation Name: [id number] Transcribed By: [place] Dictated By: Deven Neves MD Electronically Authenticated By: Deven Neves MD Signed Date/Time: 12/01/19 1309 DD/ 1307 TD/TT: Referring Physician: JUSTO THOMAS Patient Name: MESHA TAYLOR Date of : 1975 Sex: Female Report Date: 2019-12-01 Report Status: [place] [address] Cat Scan Report Signed Patient: MESHA TAYLOR MR#: [id number] : 1975 Acct:[id number] Age/Sex: 44 / F ADM Date: 12/01/19 Loc: ED Attending Dr: Ordering Physician: JUSTO THOMAS NP Date of Service: 12/01/19 Procedure(s): CT abdomen pelvis w con Accession Number(s): [id number] cc: JUSTO THOMAS NP CT ABDOMEN AND PELVIS WITH CONTRAST INDICATION / CLINICAL IN FORMATION: Abdominal pain. Possible gallstones. TECHNIQUE: Axial CT images were obtained through the abdomen and pelvis after 100 cc Omnipaque [address] scans at this location are performed using CT dose reduction for ALARA by means of automated exposure control. COMPARISON: Complete abdominal ultrasound performed earlier today. FINDINGS: LOWER CHEST: Pectus excavatum without an herve tional significant abnormalities. LIVER: No significant abnormality. GALLBLADDER: No significant abnormality. BILE DUCTS: No significant abnormality. PANCREAS: No significant abnormality. SPLEEN: No significant abnormality. ADRENALS: No significant abnormality. RIGHT KIDNEY / URETER: No significant abnormality. LEFT KIDNEY / URETER: No significant abnormality. STOMACH / SMALL BOWEL: No significant abnormality. COLON: No significant abnormality. APPENDIX: No significant abnormality. PERITONEUM: No free fluid. No free air. No fluid collection. LYMPH NODES: No significant adenopathy. AORTA / ARTERIES: No significant abnormality. IVC / VEINS: No significant abnormality. URINARY BLADDER: No significant abnormality. REPRODUCTIVE ORGANS: No significant abnormality. ADDITIONAL FINDINGS: None. SKELETAL SYSTEM: No significant abnormality. IMPRESSION: 1. No acute abnormality. 2. No CT evidence of c holelithiasis. Signer Name: Deven Neves MD Signed: 12/01/2019 2:07 PM Workstation Name: [id number] Transcribed By: RIAN Dictated By: Deven Neves MD Electronically Authenticated By: Deven Neves MD Signed Date/Time: 12/01/19 140 DD/ 02 TD/TT: - Medical Decision Making This is a 44-year-old female that presents with abdominal pain. Patient is stable and was examined by me. Labs obtained. UA obtained. CT/US of abdomen obtained and dictated by the radiologist. Patient is notified of the report with no questions noted by the patient. Vital signs are stable prior to discharge. Patient received medical treatment in the ED which patient stated symptoms has resovled and subsided. Was instructed note to operate any machinery due to possible drowsiness and stated someone will drive the patient home. A by mouth challenge has been obtained and patient tolerated well with no nausea vomiting. Patient was also instructed to Follow-up with a primary care doctor in 3-5 days or if symptoms worsen and continue return to emergency room as soon as possible. At time of discharge, the patient does not seem toxic or ill in appearance. No acute signs of distress noted. Patient agrees to discharge treatment plan of care. No further questions noted by the patient. - Differential Diagnosis Cholecystitis, cholelithiasis, small bowel obstruction, gastritis Critical care attestation.: If time is entered above; I have spent that time in minutes in the direct care of this critically ill patient, excluding procedure time. ED Disposition Clinical Impression: Abdominal pain Qualifiers: Abdominal location: generalized Qualified Code(s): R10.84 - Generalized abdominal pain Nausea & vomiting Qualifiers: Vomiting type: unspecified Vomiting Intractability: non-intractable Qualified Code(s): R11.2 - Nausea with vomiting, unspecified Disposition: - TO HOME OR SELFCARE Is pt being admited?: No Does the pt Need Aspirin: No Condition: Stable Instructions: Abdominal Pain (ED), Acute Nausea and Vomiting (ED) Additional Instructions: Follow-up with a primary care and manager cost doctor in 3-5 days or if symptoms worsen and continue return to emergency room as soon as possible. Prescriptions: Ondansetron [Zofran Odt] 4 mg PO Q8HR PRN #12 tab.rapdis PRN Reason: Nausea Referrals: KIMBERYL PICHARDO MD [Primary Care Provider] - 3-5 Days SUSANA REDMAN MD [Staff Physician] - 3-5 Days [facility] [Provider Group] - 3-5 Days Forms: Work/School Release Form(ED)
[2019-12-01 10:49] LABS: Eosinophils # (Auto) 0.1 K/mm3 (0.0-0.4); Eosinophils % (Auto) 1.6 % (0.0-4.3); Hematocrit 29.2 % (30.3-42.9); Hemoglobin 8.8 gm/dl (10.1-14.3); Lymphocytes # (Auto) 1.8 K/mm3 (1.2-5.4); Lymphocytes % (Auto) 35.7 % (13.4-35.0); Mean Corpuscular HGB Conc 30 % (30-34); Mean Corpuscular Volume 69 fl (79-97); Monocytes # (Auto) 0.5 K/mm3 (0.0-0.8); Monocytes % (Auto) 9.8 % (0.0-7.3); Platelet Count 296 K/mm3 (140-440); Red Blood Count 4.25 M/mm3 (3.65-5.03)
[2019-12-01 10:53] LABS: Alanine Aminotransferase 12 units/L (7-56); Albumin 4.5 g/dL (3.9-5); Blood Urea Nitrogen 6 mg/dL (7-17); Hemolysis Index 0
[2019-12-01 11:22] LABS: BUN/Creatinine Ratio 9
--- NOTE | 2019-12-01 13:14 | Ultrasound Report ---
ULTRASOUND ABDOMEN, COMPLETE INDICATION: abd pain. COMPARISON: No relevant prior imaging study available. FINDINGS: Pancreas: Partially obscured by bowel gas without a distinct abnormality. Abdominal Aorta: No significant abnormality. IVC: Obscured by bowel gas. Liver: No significant abnormality. Gallbladder: No significant abnormality. Bile ducts: No intrahepatic biliary ductal dilatation. The CBD is not clearly visualized. Kidneys: Right: No significant abnormality. Left : No significant abnormality. Spleen: No significant abnormality. Free fluid: None. Additional Findings: None. IMPRESSION: 1. No sonographic abnormality of the abdomen. Signer Name: Deven Neves MD Signed: 12/01/2019 1:09 PM Workstation Name: [id number]
--- NOTE | 2019-12-01 14:12 | Cat Scan Report ---
CT ABDOMEN AND PELVIS WITH CONTRAST INDICATION / CLINICAL INFORMATION: Abdominal pain. Possible gallstones. TECHNIQUE: Axial CT images were obtained through the abdomen and pelvis after 100 cc Omnipaque [address] scans at this location are performed using CT dose reduction for ALARA by means of automated exposure control. COMPARISON: Complete abdominal ultrasound performed earlier today. FINDINGS: LOWER CHEST: Pectus excavatum without an additional significant abnormalities. LIVER: No significant abnormality. GALLBLADDER: No significant abnormality. BILE DUCTS: No significant abnormality. PANCREAS: No significant abnormality. SPLEEN: No significant abnormality. ADRENALS: No significant abnormality. RIGHT KIDNEY / URETER: No significant abnormality. LEFT KIDNEY / URETER: No significant abnormality. STOMACH / SMALL BOWEL: No significant abnormality. COLON: No significant abnormality. APPENDIX: No significant abnormality. PERITONEUM: No free fluid. No free air. No fluid collection. LYMPH NODES: No significant adenopathy. AORTA / ARTERIES: No significant abnormality. IVC / VEINS: No significant abnormality. URINARY BLADDER: No significant abnormality. REPRODUCTIVE ORGANS: No significant abnormality. ADDITIONAL FINDINGS: None. SKELETAL SYSTEM: No significant abnormality. IMPRESSION: 1. No acute abnormality. 2. No CT evidence of cholelithiasis. Signer Name: Deven Neves MD Signed: 12/01/2019 2:07 PM Workstation Name: [id number]
== END 2019-12-01 14:35 | disposition home or self-care (01) ==
LOC: ED 09:20
DX: R10.11 Right upper quadrant pain (principal); R11.2 Nausea with vomiting, unspecified; I10 Essential (primary) hypertension; F31.9 Bipolar disorder, unspecified; J45.909 Unspecified asthma, uncomplicated; Z79.899 Other long term (current) drug therapy; Z88.8 Allergy status to other drugs, medicaments and biological substances
CPT/HCPCS: 36415; 74177; 76700; 80053; 81001; 83690; 84703; 85025; 96361; 96374; 96375; 96376; 99284; J2270; J2405; J7030; Q9967

== ENCOUNTER 2020-02-29 06:25 | Emergency (ER) | payer BC ==
[2020-02-29] MEDS ORDERED: MECLIZINE 25 MG TAB PO ONE (09:03)
[2020-02-29] MEDS ORDERED: LACTATED RINGERS 1,000 ML IV ONE (09:03)
[2020-02-29] MEDS ORDERED: ONDANSETRON 4 MG/2 ML INJ IV ONE (09:04)
[2020-02-29 09:34] LABS: Basophils # (Auto) 0.1 K/mm3 (0.0-0.1); Basophils % (Auto) 1.3 % (0.0-1.8); Eosinophils # (Auto) 0.1 K/mm3 (0.0-0.4); Hematocrit 30.7 % (30.3-42.9); Hemoglobin 9.4 gm/dl (10.1-14.3); Lymphocytes # (Auto) 2.2 K/mm3 (1.2-5.4); Lymphocytes % (Auto) 30.6 % (13.4-35.0); Mean Corpuscular HGB Conc 31 % (30-34); Monocytes # (Auto) 0.7 K/mm3 (0.0-0.8); Monocytes % (Auto) 9.3 % (0.0-7.3); Platelet Count 256 K/mm3 (140-440); Red Blood Count 4.52 M/mm3 (3.65-5.03)
--- NOTE | 2020-02-29 09:35 | Emergency Department Report ---
ED General Adult HPI - General Chief complaint: Earache Stated complaint: TOOTH/FACIAL PAIN LF SIDE Time Seen by Provider: 02/29/20 09:02 Source: patient Mode of arrival: Ambulatory Limitations: No Limitations - History of Present Illness Initial comments: 44-year-old female with history of hypertension and tobacco use presenting with chief complaint of dizziness. She states that onset was gradual on Saturday when she developed intermittent sharp pains in her left ear. She states that now she has intermittent pain on the left side of her face and left lower tooth however states that her equilibrium feels off and that she feels herself ambulating with an unsteady gait at times. She states that when she moves her head around the dizziness is worse and if she lies completely still it does seem to be better. Denies any prior history of this. Reports associated nausea but no vomiting, no fevers, no nasal congestion or drainage. - Related Data Home Medications Medication Instructions Recorded Confirmed Last Taken Nicotine [Habitrol] 21 mg TD DAILY 04/27/19 04/27/19 04/26/19 Previous Rx's Medication Instructions Recorded Last Taken Type Albuterol Mdi (or & Nicu Only) 2 puff IH QID PRN #8.5 gram 04/27/19 Unknown Rx [ProAir HFA Inhaler] predniSONE [Deltasone] 20 mg PO QDAY #5 tab 04/27/19 Unknown Rx Benzonatate [Tessalon Perles] 200 mg PO Q8HR #20 capsule 04/28/19 Unknown Rx guaiFENesin [Robitussin] 200 mg PO Q4H PRN #1 bottle 04/28/19 Unknown Rx Iron Fum,Ps/Folic/Bcomp,C No.9 1 each PO DAILY 30 Days #30 capsule 08/28/19 Unknown Rx [Integra Plus Capsule] Potassium Chloride 20 meq PO QDAY 30 Days #30 packet 08/28/19 Unknown Rx Ondansetron [Zofran Odt] 4 mg PO Q8HR PRN #12 tab.rapdis 12/01/19 Unknown Rx Amoxicillin [Amoxicillin TAB] 875 mg PO BID #20 tablet 02/29/20 Unknown Rx Meclizine [Antivert] 25 mg PO TID PRN #30 tablet 02/29/20 Unknown Rx Promethazine [Phenergan] 25 mg PO Q6HR PRN #12 tab 02/29/20 Unknown Rx amLODIPine 10 mg PO DAILY #30 02/29/20 Unknown Rx Allergies Allergy/AdvReac Type Severity Reaction Status Date / Time dichloralphenazone AdvReac Itching Verified 07/11/18 13:38 [From Midrin] isometheptene mucate AdvReac Itching Verified 07/11/18 13:38 [From Midrin] ED Review of Systems ROS: Stated complaint: TOOTH/FACIAL PAIN LF SIDE Other details as noted in HPI Comment: All other systems reviewed and negative ENT: as per HPI Neurological: as per HPI ED Past Medical Hx - Past Medical History Hx Hypertension: Yes Hx Congestive Heart Failure: No Hx Diabetes: No Hx Psychiatric Treatment: Yes (bipolar) Hx Asthma: Yes Hx COPD: No Additional medical history: brochitis - Surgical History Additional Surgical History: tubal repair - Social History Smoking Status: Never Smoker Substance Use Type: None - Medications Home Medications: Home Medications Medication Instructions Recorded Confirmed Last Taken Type Albuterol Mdi (or & Nicu Only) 2 puff IH QID PRN #8.5 gram 04/27/19 Unknown Rx [ProAir HFA Inhaler] Nicotine [Habitrol] 21 mg TD DAILY 04/27/19 04/27/19 04/26/19 History predniSONE [Deltasone] 20 mg PO QDAY #5 tab 04/27/19 Unknown Rx Benzonatate [Tessalon Perles] 200 mg PO Q8HR #20 capsule 04/28/19 Unknown Rx guaiFENesin [Robitussin] 200 mg PO Q4H PRN #1 bottle 04/28/19 Unknown Rx Iron Fum,Ps/Folic/Bcomp,C No.9 1 each PO DAILY 30 Days #30 capsule 08/28/19 Unknown Rx [Integra Plus Capsule] Potassium Chloride 20 meq PO QDAY 30 Days #30 packet 08/28/19 Unknown Rx Ondansetron [Zofran Odt] 4 mg PO Q8HR PRN #12 tab.rapdis 12/01/19 Unknown Rx Amoxicillin [Amoxicillin TAB] 875 mg PO BID #20 tablet 02/29/20 Unknown Rx Meclizine [Antivert] 25 mg PO TID PRN #30 tablet 02/29/20 Unknown Rx Promethazine [Phenergan] 25 mg PO Q6HR PRN #12 tab 02/29/20 Unknown Rx amLODIPine 10 mg PO DAILY #30 02/29/20 Unknown Rx ED Physical Exam - General Limitations: No Limitations General appearance: alert, in no apparent distress - Head Head exam: Present: atraumatic, normocephalic - Eye Eye exam: Present: normal appearance, PERRL, EOMI - ENT ENT exam: Present: normal exam, normal orophraynx, mucous membranes moist, TM's normal bilaterally - Neck Neck exam: Present: normal inspection. Absent: tenderness, meningismus - Respiratory Respiratory exam: Present: normal lung sounds bilaterally. Absent: respiratory distress - Cardiovascular Cardiovascular Exam: Present: regular rate, normal rhythm. Absent: systolic murmur, diastolic murmur, rubs, gallop - GI/Abdominal GI/Abdominal exam: Present: soft, normal bowel sounds - Extremities Exam Extremities exam: Present: normal inspection - Back Exam Back exam: Present: normal inspection - Neurological Exam Neurological exam: Present: alert, oriented X3, CN II-XII intact, reflexes normal. Absent: motor sensory deficit - Psychiatric Psychiatric exam: Present: normal affect, normal mood - Skin Skin exam: Present: warm, dry, intact, normal color. Absent: rash ED Course Vital Signs 02/29/20 02/29/20 06:32 08:52 Temperature 97.5 F L 97.8 F Pulse Rate 63 96 H Respiratory 16 18 Rate Blood Pressure 180/98 Blood Pressure 190/108 [Left] O2 Sat by Pulse 99 99 Oximetry ED Medical Decision Making - Lab Data Result diagrams: 02/29/20 09:14 02/29/20 09:14 - Radiology Data Radiology results: report reviewed Negative CTA head and neck. - Medical Decision Making 44-year-old female with hypertension and tobacco use presenting with dizziness worse with movement better with rest and at times causing her to have unsteady gait. Denies any falls. No prior history. She also reports associated left-sided facial/ear pain. ENT exam is completely normal, neurologic exam normal and she is able to ambulate. Dizziness is reproducible with movement. She is quite hypertensive. She has been given her typical daily dose of medications for the morning. We will obtain CTA head and neck to rule out verte bral artery dissection or other acute process. Patient given IV fluids, Zofran, meclizine. Labs are stable, CTA head and neck are negative for acute findings. Symptoms have improved with medications given. We will prescribe antibiotics to cover for possible dental infection as well as meclizine and Phenergan. Recommend PCP or ENT follow-up. Blood pressure has mildly improved after her normal medications were taken though remains suboptimally controlled. We will increase her amlodipine to 10 mg until she follows up with her primary care doctor and she has been advised to monitor her blood pressure closely. - Differential Diagnosis Vertigo, otitis media, labyrinthitis, vertebral artery dissection, CVA Critical care attestation.: If time is entered above; I have spent that time in minutes in the direct care of this critically ill patient, excluding procedure time. ED Disposition Clinical Impression: Vertigo, Dentalgia Hypertension Qualifiers: Hypertension type: unspecified Qualified Code(s): I10 - Essential (primary) hypertension Disposition: TO HOME OR SELFCARE Is pt being admited?: No Condition: Stable Instructions: Hypertension (ED), Dizziness, Hypertension, Adult, [id number] Prescriptions: amLODIPine 10 mg PO DAILY #30 Amoxicillin [Amoxicillin TAB] 875 mg PO BID #20 tablet Meclizine [Antivert] 25 mg PO TID PRN #30 tablet PRN Reason: Vertigo Promethazine [Phenergan] 25 mg PO Q6HR PRN #12 tab PRN Reason: Nausea Referrals: PRIMARY CARE, [Primary Care Provider] - 3-5 Days Time of Disposition: 10:58
[2020-02-29 09:39] LABS: Mean Corpuscular Volume 68 fl (79-97); Red Cell Distribution Width 21.8 % (13.2-15.2)
[2020-02-29 09:50] LABS: Blood Urea Nitrogen 12 mg/dL (7-17); Calcium 9.5 mg/dL (8.4-10.2); Hemolysis Index 0
[2020-02-29 09:53] LABS: BUN/Creatinine Ratio 17
[2020-02-29] MEDS ORDERED: KETOROLAC 30 MG/1 ML INJ ONE (10:23)
[2020-02-29] MEDS ORDERED: KETOROLAC 30 MG/1 ML INJ IV ONE (10:30)
--- NOTE | 2020-02-29 10:42 | Cat Scan Report ---
CTA NECK WITH CONTRAST HISTORY: Dizziness COMPARISON: None. TECHNIQUE: Routine CTA of the neck was performed. 3-D/MIP reformats were postprocessed. Percentage s tenosis is determined by direct quantitative measurements of diseased internal carotid artery diamete r compared with normal distal internal carotid artery reference segments or by criteria similar to NA SCET where applicable.All CT scans at this location are performed using CT dose reduction for ALARA b y means of automated exposure control CONTRAST: 100 ml of Omnipaque 350 FINDINGS: Aortic arch: No significant abnormality. Aortic origin of left vertebral artery Cervical vertebral arteries: No significant abnormality. Common carotid arteries: No significant abnormality. Carotid bifurcations: Normal Cervical internal carotid arteries: No significant abnormality. Additional findings: None. IMPRESSION: 1. No significant abnormality. Signer Name: Ekaterina Ramires MD Signed: 02/29/2020 10:37 AM Workstation Name: [id number]
--- NOTE | 2020-02-29 10:45 | Cat Scan Report ---
CTA HEAD WITH CONTRAST HISTORY: Dizziness COMPARISON: None. TECHNIQUE: Routine non-contrast CT Head, CTA of the head and post-contrast CT Head are performed. 3-D /MIP reformats postprocessed. All CT scans at this location are performed using CT dose reduction for ALARA by means of automated exposure control CONTRAST: 100 ml of Omnipaque 350 FINDINGS: CTA Head: Intracranial vertebral arteries: No significant abnormality. Basilar artery: No significant abnormality. Posterior cerebral arteries: No significant abnormality. Intracranial internal carotid arteries: No significant abnormality. Anterior cerebral arteries: No significant abnormality. Middle cerebral arteries: No significant abnormality. Dural venous sinuses:Not optimally opacified. No significant abnormality. Additional findings: None. IMPRESSION: 1. No significant abnormality. Signer Name: Ekaterina Ramires MD Signed: 02/29/2020 10:40 AM Workstation Name: [id number]
[2020-02-29 12:28] VITALS: BP 172/103
== END 2020-02-29 12:28 | disposition home or self-care (01) ==
LOC: ED 06:25
DX: K08.89 Other specified disorders of teeth and supporting structures (principal); R42 Dizziness and giddiness; I10 Essential (primary) hypertension; F31.9 Bipolar disorder, unspecified; J45.909 Unspecified asthma, uncomplicated; Z98.890 Other specified postprocedural states; Z79.2 Long term (current) use of antibiotics; Z79.899 Other long term (current) drug therapy; Z88.8 Allergy status to other drugs, medicaments and biological substances
CPT/HCPCS: 36415; 70496; 70498; 80048; 84703; 85025; 96361; 96374; 96375; 99284; J1885; J2405; J7120; Q9967

== ENCOUNTER 2020-09-17 13:02 | Emergency (ER) | payer BC ==
[2020-09-17] MEDS ORDERED: KETOROLAC 60 MG/2 ML INJ IM ONE (14:08)
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
[2020-09-17 15:21] VITALS: BP 145/87
== END 2020-09-17 15:21 | disposition home or self-care (01) ==
LOC: ED 13:02
DX: M54.32 Sciatica, left side (principal); I10 Essential (primary) hypertension; F31.9 Bipolar disorder, unspecified; J45.909 Unspecified asthma, uncomplicated; F17.200 Nicotine dependence, unspecified, uncomplicated; Z98.890 Other specified postprocedural states; Z79.1 Long term (current) use of non-steroidal anti-inflammatories (NSAID); Z79.899 Other long term (current) drug therapy; Z88.8 Allergy status to other drugs, medicaments and biological substances
CPT/HCPCS: 96372; 99282; J1885

== ENCOUNTER 2021-02-22 08:57 | Emergency (ER) | payer BC ==
[2021-02-22] MEDS ORDERED: SODIUM CHLORIDE 0.9% 1000 ML 1,000 ML IV ONE (09:12)
[2021-02-22] MEDS ORDERED: ACETAMINOPHEN 500 MG TAB PO ONE (09:13)
[2021-02-22] MEDS ORDERED: ONDANSETRON 4 MG/2 ML INJ IV ONE (09:13)
--- NOTE | 2021-02-22 09:45 | XRay Report ---
CHEST 1 VIEW 02/22/2021 9:17 AM INDICATION / CLINICAL INFORMATION: shortness of breath Covid exposure. COMPARISON: 04/27/2019 FINDINGS: SUPPORT DEVICES: None. HEART / MEDIASTINUM: No significant abnormality. LUNGS / PLEURA: No significant pulmonary or pleural abnormality. No pneumothorax. ADDITIONAL FINDINGS: No significant additional findings. IMPRESSION: 1. No acute findings. Signer Name: Aleksandar Brian MD Signed: 02/22/2021 9:41 AM Workstation Name: [id number]
[2021-02-22 09:46] LABS: Basophils # (Auto) 0.1 K/mm3 (0.0-0.1); Basophils % (Auto) 1.7 % (0.0-1.8); Eosinophils # (Auto) 0.1 K/mm3 (0.0-0.4); Eosinophils % (Auto) 2.2 % (0.0-4.3); Hemoglobin 8.1 gm/dl (10.1-14.3); Lymphocytes # (Auto) 1.8 K/mm3 (1.2-5.4); Lymphocytes % (Auto) 31.6 % (13.4-35.0); Mean Corpuscular HGB Conc 30 % (30-34); Monocytes # (Auto) 0.4 K/mm3 (0.0-0.8); Monocytes % (Auto) 7.7 % (0.0-7.3); Platelet Count 297 K/mm3 (140-440); Red Blood Count 3.97 M/mm3 (3.65-5.03); Red Cell Distribution Width 18.5 % (13.2-15.2)
[2021-02-22 09:47] LABS: Mean Corpuscular Volume 68 fl (79-97)
[2021-02-22 09:59] LABS: Blood Urea Nitrogen 17 mg/dL (7-17); Calcium 9.3 mg/dL (8.4-10.2); Hemolysis Index 3
[2021-02-22 10:05] LABS: BUN/Creatinine Ratio 28
--- NOTE | 2021-02-22 12:01 | Emergency Department Report ---
- General Chief complaint: Weakness Stated complaint: WEAKNESS Time Seen by Provider: 02/22/21 09:10 Source: patient, EMS Mode of arrival: Stretcher Limitations: No Limitations - History of Present Illness Initial comments: Chief complaint: "I just feel weak." HPI: This is a 45-year-old female with history of hypertension asthma anemia sciatica who presents with generalized weakness shortness of breath cough body aches fatigue for 1 week. Several close contacts at work recently diagnosed with Covid. Patient is not vaccinated against Covid. She also had left ear pain. Mild nasal congestion. MD Complaint: generalized weakness -: Gradual, week(s) (1 week) Location: generalized Severity scale (0 -10): 4 Consistency: constant Improves with: none Worsens with: none Context: other (Exposure to sick contacts infected with Covid) - Related Data Home Medications Medication Instructions Recorded Confirmed Last Taken Nicotine [Habitrol] 21 mg TD DAILY 04/27/19 04/27/19 04/26/19 Previous Rx's Medication Instructions Recorded Last Taken Type Albuterol Mdi (or & Nicu Only) 2 puff IH QID PRN #8.5 gram 04/27/19 Unknown Rx [ProAir HFA Inhaler] predniSONE [Deltasone] 20 mg PO QDAY #5 tab 04/27/19 Unknown Rx Benzonatate [Tessalon Perles] 200 mg PO Q8HR #20 capsule 04/28/19 Unknown Rx guaiFENesin [Robitussin] 200 mg PO Q4H PRN #1 bottle 04/28/19 Unknown Rx Iron Fum,Ps/Folic/Bcomp,C No.9 1 each PO DAILY 30 Days #30 capsule 08/28/19 Unknown Rx [Integra Plus Capsule] Potassium Chloride 20 meq PO QDAY 30 Days #30 packet 08/28/19 Unknown Rx Ondansetron [Zofran Odt] 4 mg PO Q8HR PRN #12 tab.rapdis 12/01/19 Unknown Rx Amoxicillin [Amoxicillin TAB] 875 mg PO BID #20 tablet 02/29/20 Unknown Rx Meclizine [Antivert] 25 mg PO TID PRN #30 tablet 02/29/20 Unknown Rx Promethazine [Phenergan] 25 mg PO Q6HR PRN #12 tab 02/29/20 Unknown Rx amLODIPine 10 mg PO DAILY #30 02/29/20 Unknown Rx Cyclobenzaprine [Flexeril] 10 mg PO TID PRN #10 tablet 09/17/20 Unknown Rx HYDROcodone/APAP 5-325 [[place] 1 - 2 each PO Q6HR PRN #14 tablet 09/17/20 Unknown Rx 5/325] Ibuprofen [Motrin 800 MG tab] 800 mg PO Q8HR PRN #20 tablet 09/17/20 Unknown Rx Allergies Allergy/AdvReac Type Severity Reaction Status Date / Time dichloralphenazone AdvReac Itching Verified 02/22/21 09:00 [From Midrin] isometheptene mucate AdvReac Itching Verified 02/22/21 09:00 [From Midrin] ED Review of Systems ROS: Stated complaint: WEAKNESS Other details as noted in HPI Comment: All other systems reviewed and negative Constitutional: malaise ENT: ear pain, congestion Respiratory: shortness of breath Gastrointestinal: nausea. denies: abdominal pain ED Past Medical Hx - Past Medical History Previous Medical History?: Yes Hx Hypertension: Yes Hx Congestive Heart Failure: No Hx Diabetes: No Hx Psychiatric Treatment: Yes (bipolar) Hx Asthma: Yes Hx COPD: No Additional medical history: bronchitis - Surgical History Past Surgical History?: Yes Additional Surgical History: Tubal ligation with subsequent repair of intestinal injury - Social History Smoking Status: Current Every Day Smoker (1/2 pack/day) Substance Use Type: None ( denies illicit drug use), Alcohol (Occasional) - Medications Home Medications: Home Medications Medication Instructions Recorded Confirmed Last Taken Type Albuterol Mdi (or & Nicu Only) 2 puff IH QID PRN #8.5 gram 04/27/19 Unknown Rx [ProAir HFA Inhaler] Nicotine [Habitrol] 21 mg TD DAILY 04/27/19 04/27/19 04/26/19 History predniSONE [Deltasone] 20 mg PO QDAY #5 tab 04/27/19 Unknown Rx Benzonatate [Tessalon Perles] 200 mg PO Q8HR #20 capsule 04/28/19 Unknown Rx guaiFENesin [Robitussin] 200 mg PO Q4H PRN #1 bottle 04/28/19 Unknown Rx Iron Fum,Ps/Folic/Bcomp,C No.9 1 each PO DAILY 30 Days #30 capsule 08/28/19 Unknown Rx [Integra Plus Capsule] Potassium Chloride 20 meq PO QDAY 30 Days #30 packet 08/28/19 Unknown Rx Ondansetron [Zofran Odt] 4 mg PO Q8HR PRN #12 tab.rapdis 12/01/19 Unknown Rx Amoxicillin [Amoxicillin TAB] 875 mg PO BID #20 tablet 02/29/20 Unknown Rx Meclizine [Antivert] 25 mg PO TID PRN #30 tablet 02/29/20 Unknown Rx Promethazine [Phenergan] 25 mg PO Q6HR PRN #12 tab 02/29/20 Unknown Rx amLODIPine 10 mg PO DAILY #30 02/29/20 Unknown Rx Cyclobenzaprine [Flexeril] 10 mg PO TID PRN #10 tablet 09/17/20 Unknown Rx HYDROcodone/APAP 5-325 [[place] 1 - 2 each PO Q6HR PRN #14 tablet 09/17/20 Unknown Rx 5/325] Ibuprofen [Motrin 800 MG tab] 800 mg PO Q8HR PRN #20 tablet 09/17/20 Unknown Rx ED Physical Exam - General Limitations: No Limitations General appearance: alert, in no apparent distress - Head Head exam: Present: atraumatic, normocephalic - Eye Eye exam: Present: normal appearance - ENT ENT exam: Present: mucous membranes moist - Neck Neck exam: Present: normal inspection, full ROM - Respiratory Respiratory exam: Present: normal lung sounds bilaterally. Absent: respiratory distress, wheezes, rales, rhonchi - Cardiovascular Cardiovascular Exam: Present: regular rate, normal rhythm. Absent: normal heart sounds, systolic murmur, diastolic murmur, rubs, gallop - GI/Abdominal GI/Abdominal exam: Present: soft, normal bowel sounds. Absent: distended, tenderness, guarding, rebound - Extremities Exam Extremities exam: Present: normal inspection - Neurological Exam Neurological exam: Present: alert, oriented X3 - Psychiatric Psychiatric exam: Present: normal affect, normal mood - Skin Skin exam: Present: warm, dry, intact, normal color. Absent: rash ED Course Vital Signs 02/22/21 02/22/21 02/22/21 08:58 10:23 10:30 Temperature 98.9 F Pulse Rate 107 H 91 H Respiratory 16 19 Rate Blood Pressure 175/98 Blood Pressure 156/86 [Left] O2 Sat by Pulse 100 100 100 Oximetry 02/22/21 02/22/21 02/22/21 10:46 11:06 11:16 Temperature Pulse Rate 91 H 97 H 95 H Respiratory 15 23 21 Rate Blood Pressure 175/99 175/99 175/72 Blood Pressure [Left] O2 Sat by Pulse 100 100 100 Oximetry 02/22/21 11:30 Temperature Pulse Rate 96 H Respiratory 23 Rate Blood Pressure 166/86 Blood Pressure [Left] O2 Sat by Pulse 99 Oximetry ED Medical Decision Making - Lab Data Result diagrams: 02/22/21 09:31 02/22/21 09:31 Laboratory Results - last 24 hr 02/22/21 02/22/21 02/22/21 09:31 09:31 09:31 WBC 5.5 RBC 3.97 Hgb 8.1 L Hct 27.0 L MCV 68 L MCH 20 L MCHC 30 RDW 18.5 H Plt Count 297 Lymph % (Auto) 31.6 [place] % (Auto) 7.7 H Eos % (Auto) 2.2 Baso % (Auto) 1.7 Lymph # (Auto) 1.8 [place] # (Auto) 0.4 Eos # (Auto) 0.1 Baso # (Auto) 0.1 Seg Neutrophils % 56.8 Seg Neutrophils # 3.2 Sodium 140 Potassium 3.5 L Chloride 101.2 Carbon Dioxide 24 Anion Gap 18 BUN 17 Creatinine 0.6 Estimated GFR > 60 BUN/Creatinine Ratio 28 Glucose 89 Calcium 9.3 HCG, Qual Negative - Radiology Data Radiology results: report reviewed Patient Name: MESHA TAYLOR Gender: Female Date of : 1975 Referring Provider: JESÚS TAYLOR Organization: [facility] Accession Number: [id number] Requested Date: February 22, 2021 09:13 Report Status: Final Requested Procedure: 1 Procedure Description: XR chest 1V ap Modality: XR Findings Reporting MD: Aleksandar Brian Dictation Time: February 22, 2021 08:41 Golf Course Patroller: Not available Sales And Service Associate Date: CHEST 1 VIEW 02/22/2021 9:17 AM INDICATION / CLINICAL INFORMATION: shortness of breath Covid exposure. COMPARISON: 04/27/2019 FINDINGS: SUPPORT DEVICES: None. HEART / MEDIASTINUM: No significant abnormality. LUNGS / PLEURA: No significant pulmonary or pleural abnormality. No pneumothorax. ADDITIONAL FINDINGS: No significant additional findings. IMPRESSION: 1. No acute findings. Signer Name: Aleksandar Brian MD Signed: 02/22/2021 8:41 AM Workstation Name: [id number] - Medical Decision Making Viral syndrome suspected Covid with history of exposure, chest radiograph negative for infiltrate. CBC notable for baseline anemia. Chemistry unremarkable. Recommended outpatient Covid testing. Vital Signs - 8 hr 02/22/21 02/22/21 02/22/21 08:58 10:23 10:30 Temperature 98.9 F Pulse Rate 107 H 91 H Respiratory 16 19 Rate Blood Pressure 175/98 Blood Pressure 156/86 [Left] O2 Sat by Pulse 100 100 100 Oximetry 02/22/21 02/22/21 02/22/21 10:46 11:06 11:16 Temperature Pulse Rate 91 H 97 H 95 H Respiratory 15 23 21 Rate Blood Pressure 175/99 175/99 175/72 Blood Pressure [Left] O2 Sat by Pulse 100 100 100 Oximetry 02/22/21 11:30 Temperature Pulse Rate 96 H Respiratory 23 Rate Blood Pressure 166/86 Blood Pressure [Left] O2 Sat by Pulse 99 Oximetry Critical care attestation.: If time is entered above; I have spent that time in minutes in the direct care of this critically ill patient, excluding procedure time. ED Disposition Clinical Impression: Viral syndrome, Exposure to COVID-19 virus Disposition: HOME / SELF CARE / HOMELESS Is pt being admited?: No Does the pt Need Aspirin: No Condition: Stable Instructions: Viral Illness, Adult Referrals: SUSANA REDMAN MD [Staff Physician] - as needed Forms: Work/School Release Form(ED)
[2021-02-22 12:03] VITALS: BP 167/95
== END 2021-02-22 12:12 | disposition home or self-care (01) ==
LOC: ED 08:57
DX: B34.9 Viral infection, unspecified (principal); Z20.822 Contact with and (suspected) exposure to COVID-19; I10 Essential (primary) hypertension; F31.9 Bipolar disorder, unspecified; J45.909 Unspecified asthma, uncomplicated; F17.200 Nicotine dependence, unspecified, uncomplicated; Z72.89 Other problems related to lifestyle; Z98.51 Tubal ligation status; Z88.8 Allergy status to other drugs, medicaments and biological substances; Z79.899 Other long term (current) drug therapy
CPT/HCPCS: 36415; 71045; 80048; 84703; 85025; 96361; 96374; 99284; J7030; Q0162

== ENCOUNTER 2021-04-13 06:35 | Emergency (ER) | payer BC ==
[2021-04-13 06:52] VITALS: BP 145/83
--- NOTE | 2021-04-13 07:31 | Emergency Department Report ---
ED Lower Extremity HPI - General Chief Complaint: Extremity Injury, Lower Stated Complaint: LT ANKLE INJURY Source: patient Mode of arrival: Ambulatory Limitations: No Limitations - History of Present Illness Initial Comments: Patient presents with left ankle pain and swelling. 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 She had abrupt onset of pain in the ankle and foot. She states that the pain felt like a cramp. Patient states that she was able to let that pass, but she still had ongoing pain. Patient did not rest through the night. She states that she was having pain in the ankle and foot. She came in today because she noticed that her left ankle was swollen when she got up. She denies any known direct trauma. She is not sure if the standing caused a problem. 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 She is not having any other joint pain. She has no other injury. She denies pain or swelling in the lower extremity otherwise. Patient denies fevers and chills but there is no cough congestion. Again, pain is constant and aching. It is worse with palpation and movement. - Related Data Home Medications Medication Instructions Recorded Confirmed Last Taken Nicotine [Habitrol] 21 mg TD DAILY 04/27/19 04/27/19 04/26/19 Previous Rx's Medication Instructions Recorded Last Taken Type Albuterol Mdi (or & Nicu Only) 2 puff IH QID PRN #8.5 gram 04/27/19 Unknown Rx [ProAir HFA Inhaler] Iron Fum,Ps/Folic/Bcomp,C No.9 1 each PO DAILY 30 Days #30 capsule 08/28/19 Unknown Rx [Integra Plus Capsule] Potassium Chloride 20 meq PO QDAY 30 Days #30 packet 08/28/19 Unknown Rx Ondansetron [Zofran Odt] 4 mg PO Q8HR PRN #12 tab.rapdis 12/01/19 Unknown Rx Meclizine [Antivert] 25 mg PO TID PRN #30 tablet 02/29/20 Unknown Rx Promethazine [Phenergan] 25 mg PO Q6HR PRN #12 tab 02/29/20 Unknown Rx amLODIPine 10 mg PO DAILY #30 02/29/20 Unknown Rx Ibuprofen [Motrin 800 MG tab] 800 mg PO Q8HR PRN #20 tablet 04/13/21 Unknown Rx Allergies Allergy/AdvReac Type Severity Reaction Status Date / Time dichloralphenazone AdvReac Itching Verified 02/22/21 09:00 [From Midrin] isometheptene mucate AdvReac Itching Verified 02/22/21 09:00 [From Midrin] ED Review of Systems ROS: Stated complaint: LT ANKLE INJURY Other details as noted in HPI Comment: All other systems reviewed and negative Constitutional: denies: fever Eyes: denies: vision change ENT: denies: throat pain Respiratory: denies: cough Cardiovascular: denies: chest pain Endocrine: denies: unexplained weight loss Gastrointestinal: denies: abdominal pain Genitourinary: denies: dysuria Musculoskeletal: as per HPI. denies: back pain Skin: denies: rash Neurological: denies: headache Hematological/Lymphatic: denies: easy bruising ED Past Medical Hx - Past Medical History Previous Medical History?: Yes Hx Hypertension: Yes Hx Congestive Heart Failure: No Hx Diabetes: No Hx Psychiatric Treatment: Yes (bipolar) Hx Asthma: Yes Hx COPD: No Additional medical history: bronchitis - Surgical History Past Surgical History?: Yes Additional Surgical History: Tubal ligation with subsequent repair of intestinal injury - Family History Family history: hypertension - Social History Smoking Status: Current Every Day Smoker (1/2 pack/day) Substance Use Type: None ( denies illicit drug use), Alcohol (Occasional) - Medications Home Medications: Home Medications Medication Instructions Recorded Confirmed Last Taken Type Albuterol Mdi (or & Nicu Only) 2 puff IH QID PRN #8.5 gram 04/27/19 Unknown Rx [ProAir HFA Inhaler] Nicotine [Habitrol] 21 mg TD DAILY 04/27/19 04/27/19 04/26/19 History Iron Fum,Ps/Folic/Bcomp,C No.9 1 each PO DAILY 30 Days #30 capsule 08/28/19 Unknown Rx [Integra Plus Capsule] Potassium Chloride 20 meq PO QDAY 30 Days #30 packet 08/28/19 Unknown Rx Ondansetron [Zofran Odt] 4 mg PO Q8HR PRN #12 tab.rapdis 12/01/19 Unknown Rx Meclizine [Antivert] 25 mg PO TID PRN #30 tablet 02/29/20 Unknown Rx Promethazine [Phenergan] 25 mg PO Q6HR PRN #12 tab 02/29/20 Unknown Rx amLODIPine 10 mg PO DAILY #30 02/29/20 Unknown Rx Ibuprofen [Motrin 800 MG tab] 800 mg PO Q8HR PRN #20 tablet 04/13/21 Unknown Rx ED Physical Exam - General Limitations: No Limitations, Other (Pulse ox noted and normal) General appearance: alert, in no apparent distress - Head Head exam: Present: atraumatic, normocephalic - Eye Eye exam: Present: normal appearance - ENT ENT exam: Present: normal external ear exam - Neck Neck exam: Present: normal inspection - Respiratory Respiratory exam: Absent: respiratory distress - Cardiovascular Cardiovascular Exam: Absent: JVD - Extremities Exam Extremities exam: Present: normal capillary refill, other (There is tenderness with edema to the left lateral malleolus. This is anterior to the malleolus itself. There is no fibular head tenderness or fifth metatarsal tenderness. Pulses are equal and symmetric bilaterally.). Absent: calf tenderness - Back Exam Back exam: Present: full ROM - Neurological Exam Neurological exam: Present: alert, oriented X3, abnormal gait (Antalgic). Absent: motor sensory deficit - Psychiatric Psychiatric exam: Present: normal affect, normal mood - Skin Skin exam: Present: warm, dry ED Course Vital Signs 04/13/21 06:41 Temperature 97.5 F L Pulse Rate 92 H Respiratory 18 Rate Blood Pressure 145/83 [Right] O2 Sat by Pulse 100 Oximetry - Reevaluation(s) Reevaluation #1: 04/13/21 07:28 Radiographs ordered. Old records noted. Reevaluation #2: 04/13/21 08:48 Radiographs are noted. ED Lower Extremity MDM - Radiology Data Radiology results: report reviewed - Medical Decision Making Patient presents with left ankle and foot pain after working yesterday. There was no direct trauma that would suggest dislocation or fracture. Radiographically, there is no evidence of dislocation or fracture. Patient has good pulses with warm extremity. I am not concerned for vascular injury. There is no warmth or erythema suggestive of infectious pathology. She does not have a history of gout. It would be unlikely that this would be gout as a first attack in the ankle. Patient was treated symptomatically and referred for outpatient evaluation and follow-up. Critical Care Time: No Critical care attestation.: If time is entered above; I have spent that time in minutes in the direct care of this critically ill patient, excluding procedure time. ED Disposition Clinical Impression: Edema of left ankle Left ankle pain Qualifiers: Chronicity: acute Qualified Code(s): M25.572 - Pain in left ankle and joints of left foot Disposition: HOME / SELF CARE / HOMELESS Is pt being admited?: No Condition: Stable Instructions: How to Use Cold Therapy, [id number], Ankle Pain, Pain Without a Known Cause Additional Instructions: Ice and elevate. Return for problems. Follow-up with your doctor or the referral physician for recheck and further management. Wear the Matthew wrap for comfort. Prescriptions: Ibuprofen [Motrin 800 MG tab] 800 mg PO Q8HR PRN #20 tablet PRN Reason: Pain, Moderate (4-6) Referrals: PRIMARY CAREMD [Primary Care Provider] - 3-5 Days DICKSON ROSE MD [Staff Physician] - 3-5 Days
--- NOTE | 2021-04-13 08:38 | XRay Report ---
LEFT ANKLE 3 VIEWS INDICATION: injury. COMPARISON: None. IMPRESSION: There is moderate lateral soft tissue swelling. No acute osseous abnormality or joint p athology is detected. Signer Name: Abdirahman Rodrigez Jr, MD Signed: 04/13/2021 8:34 AM Workstation Name: [id number]
== END 2021-04-13 09:01 | disposition home or self-care (01) ==
LOC: ED 06:35
DX: R60.0 Localized edema (principal); M25.572 Pain in left ankle and joints of left foot; I10 Essential (primary) hypertension; F31.9 Bipolar disorder, unspecified; J45.909 Unspecified asthma, uncomplicated; F17.200 Nicotine dependence, unspecified, uncomplicated; Z72.89 Other problems related to lifestyle; Z88.8 Allergy status to other drugs, medicaments and biological substances; Z79.899 Other long term (current) drug therapy
CPT/HCPCS: 99283